=== PATIENT | male | born 1995 | race Two or more races ===

== ENCOUNTER 2021-06-27 03:09 | Inpatient (IN) | payer OTHER ==
[~2021-06-27] VITALS: Ht 177.8 cm; Wt 98.8 kg
[2021-06-27] VITALS (41 sets, daily range): BP systolic 100–142; BP diastolic 45–80
[~2021-06-27 03:09] MED LIST: AZIT250T9 PO; BENZ100C97 PO; CEFP200T15 PO
[2021-06-27] MEDS ORDERED: DexAMETHasone SOD PHOS 4 MG/1ML SDV INJ ONE (03:34)
[2021-06-27] MEDS ORDERED: DexAMETHasone SOD PHOS 10MG/1ML VIAL INJ IV ONE (03:45)
[2021-06-27] MEDS ORDERED: AZITHROMYCIN 500MG/ 250ML 250 ML IV ONE (04:15)
[2021-06-27 04:54] LABS: Lactic Acid w/Reflex 3.3 mmol/L (0.4-2.0)
[2021-06-27 04:58] LABS: Albumin 2.3 g/dL (3.4-5.0); Calcium 7.8 mg/dL (8.5-10.1); Magnesium 2.9 mg/dL (1.6-2.6); Potassium 4.8 mmol/L (3.5-5.1)
[2021-06-27 05:10] LABS: BUN/Creatinine Ratio 14.5; Bilirubin, Total 0.9 mg/dL (0.2-1.0)
[2021-06-27 05:14] LABS: Basophils # (auto) 0.1 10 ^3/uL (0-0.2); Basophils % (auto) 0.3 % (0.0-2.0); Eosinophils # (auto) 0 10 ^3/uL (0-0.8); Hematocrit 40.1 % (41.0-53.0); Lymphocytes # (auto) 1.3 10 ^3/uL (0.4-5.4); Lymphocytes % (auto) 7.1 % (10.0-50.0); Mean Corpuscular Hemoglobin 30.6 pg (28.0-32.0); Mean Corpuscular Volume 87.3 fL (80.0-100.0); Monocytes # (auto) 1.2 10 ^3/uL (0-1.3); Monocytes % (auto) 6.3 % (0.0-12.0); Neutrophils # (auto) 16.2 10 ^3/uL (1.6-8.6); Neutrophils % (auto) 86.3 % (37.0-80.0); Nucleated Red Blood Cells % 0.2 %; Red Blood Cells 4.59 10^6/uL (4.5-5.90); Red Cell Distribution Width 12.8 % (11.8-14.3); White Blood Cell 18.7 10^3/uL (4.4-10.8)
[2021-06-27] MEDS ORDERED: ENOXAPARIN SOD 100 MG/1 ML SYRINGE SC ONE (05:30)
[2021-06-27] MEDS ORDERED: ASPirin 325 MG TAB PO ONE (06:15)
[2021-06-27] MEDS ORDERED: LORazepam 2MG/ML-1ML VIAL ONE (07:31)
[2021-06-27] MEDS ORDERED: ETOMIDATE (2MG/ML) 20ML VIAL IV ONE ×4 (07:52→08:30)
[2021-06-27] MEDS ORDERED: SUCCINYLCHOLINE CHLORIDE 20 MG/ML 10ML VIAL IV ONE ×3 (07:52→08:29)
[2021-06-27] MEDS ORDERED: MIDAZOLAM DRIP 50 mg/50mL 50 ML IV ONE (07:52)
[2021-06-27 07:53] LABS: INR 1.31 (0.9-1.15); Partial Thromboplastin Time 33.6 sec (23.6-33.0)
[2021-06-27] MEDS ORDERED: fentaNYL Drip 2500mCg/250mlNS 250 ML IV ONE (07:55)
[2021-06-27] MEDS: fentaNYL Drip 2500mCg/250mlNS 250 ML IV SCH ×2 (08:20→09:40)
[2021-06-27] MEDS: MIDAZOLAM DRIP 50 mg/50mL 50 ML IV SCH ×3 (08:20→22:36)
[2021-06-27] MEDS ORDERED: PROPOFOL 100 ML IV ONE (08:27)
[2021-06-27] MEDS: PROPOFOL 100 ML IV SCH (08:31)
[2021-06-27] MEDS ORDERED: NOREPINEPHRINE 8 MG/250ML KIT 250 ML IV ONE (08:37)
[2021-06-27] MEDS ORDERED: ROCURONIUM BROMIDE 1,000 MG in D5W 5% 150 ML IV SCH (08:45)
[2021-06-27] MEDS ORDERED: ACETAMINOPHEN 650 MG RECT SUPP PR ONE ×2 (08:45→08:52)
[2021-06-27] MEDS ORDERED: ROCURONIUM 10MG/ML 10ML VIAL IV ONE (08:45)
[2021-06-27] MEDS ORDERED: MORPHINE SULFATE INJECTION 2 MG/ML SYRG IV PRN (09:30)
[2021-06-27] MEDS ORDERED: ALBUTEROL SULF HFA 90MCG INH 200DOSE IN PRN (09:30)
[2021-06-27] MEDS ORDERED: ONDANSETRON HCL 4 MG/2 ML VIAL IV PRN (09:30)
[2021-06-27] MEDS ORDERED: NITROGLYCERIN 0.4 MG SL TAB SL PRN (09:30)
[2021-06-27] MEDS ORDERED: HYDROmorphone HCL 2 MG/ML VL IV PRN (09:30)
[2021-06-27] MEDS ORDERED: REMDESIVIR PER PHARMACY 0 ML IV SCH (09:30)
[2021-06-27] MEDS ORDERED: HYDROcodone-ACET 5/325MG TAB PO PRN (09:30)
[2021-06-27] MEDS ORDERED: DOCUSATE SOD 100 MG CAP PO PRN (09:30)
[2021-06-27] MEDS: ROCURONIUM BROMIDE 1,000 MG in D5W 5% 150 ML IV SCH ×2 (09:40→23:28)
[2021-06-27] MEDS: NOREPINEPHRINE 8 MG/250ML KIT 250 ML IV SCH (09:55)
[2021-06-27] MEDS: AZITHROMYCIN 500MG/ 250ML 250 ML IV SCH (10:00)
[2021-06-27] MEDS ORDERED: ENOXAPARIN SOD 40 MG/0.4 ML SYRINGE SC SCH (10:00)
[2021-06-27] MEDS ORDERED: BUDESONIDE (INHALATION) 180 MCG IH IN SCH (10:00)
[2021-06-27] MEDS ORDERED: ACETAMINOPHEN 500 MG TAB PO ONE (10:15)
[2021-06-27] MEDS: DexAMETHasone SOD PHOS 10MG/1ML VIAL INJ IV SCH (10:40)
[2021-06-27] MEDS: CHOLECALCIFEROL (VITD3) 2,000 UNIT CAP/TAB PO SCH (10:40)
[2021-06-27] MEDS: ASCORBIC ACID 1,000 MG TAB PO SCH (10:40)
[2021-06-27] MEDS: ZINC SULFATE 220mg CAP or TAB PO SCH (10:40)
[2021-06-27] MEDS ORDERED: cefTRIAXone 1GM/50ML D5W 50 ML IV ONE (11:00)
[2021-06-27 11:22] LABS: Hematocrit 36.8 % (41.0-53.0); Hemoglobin 12.4 g/dL (13.5-17.5); Mean Corpuscular Hemoglobin 29.7 pg (28.0-32.0); Mean Corpuscular Hgb Conc. 33.8 g/dL (32.0-36.0); Mean Corpuscular Volume 87.9 fL (80.0-100.0); Red Blood Cells 4.18 10^6/uL (4.5-5.90); Red Cell Distribution Width 12.7 % (11.8-14.3); White Blood Cell 15.8 10^3/uL (4.4-10.8)
[2021-06-27 11:27] LABS: Basophils % (manual) 0 (0.0-2.0); Blast Cells 0; Eosinophils % (manual) 0 (0-7); Monocytes % (manual) 0 (0-12); Promyelocytes % 0; Reactive Lymphocytes 0
[2021-06-27] MEDS ORDERED: HEPARIN DRIP/D5W 100UNITS/ML 250 ML IV SCH (11:30)
[2021-06-27 11:33] LABS: Albumin 2.1 g/dL (3.4-5.0); Calcium 6.9 mg/dL (8.5-10.1); Potassium 5.2 mmol/L (3.5-5.1)
[2021-06-27 11:44] LABS: BUN/Creatinine Ratio 15.1; Bilirubin, Total 0.9 mg/dL (0.2-1.0); CRP High Sensitivity 16.2 mg/dL (< 0.3); Total Protein 6.4 g/dL (6.4-8.2)
[2021-06-27 11:49] LABS: INR 1.21 (0.9-1.15); Partial Thromboplastin Time 31.1 sec (23.6-33.0)
[2021-06-27 11:53] LABS: Band Neutrophils % (manual) 8; Lymphocytes % (manual) 5 (10.0-50.0); Metamyelocytes % 1; Myelocytes % 3
[2021-06-27] MEDS: HEPARIN DRIP/D5W 100UNITS/ML 250 ML IV SCH (12:56)
[2021-06-27] MEDS ORDERED: PIPERACILLIN-TAZO 4.5GM 100 ML IV SCH (14:00)
[2021-06-27] MEDS: SODIUM CHLOR 0.9% PF (SALINE LOCK) 10ML VIAL/SYR IV SCH ×2 (14:00→22:36)
[2021-06-27] MEDS: TOCILIZUMAB 400 MG in SODIUM CHL 0.9% 80 ML IV SCH (14:00)
[2021-06-27] MEDS ORDERED: IBUPROFEN 800 MG TAB PO ONE (16:15)
[2021-06-27] MEDS ORDERED: REMDESIVIR 200 MG in NS 210ml LOADING DOSE ADULT IV ONE (18:00)
[2021-06-27] MEDS ORDERED: FUROSEMIDE 20 MG/2 ML VIAL IV ONE (18:15)
[2021-06-27] MEDS: ERGOCALCIFEROL 50,000 UNIT(1.25MG) CAP PO SCH ×2 (20:51→22:36)
[2021-06-27] MEDS: BUDESONIDE (INHALATION) 0.5 MG/2 ML NEB NEB SCH (21:46)
[2021-06-27 23:10] LABS: Urine Bacteria FEW /hpf (None Seen); Urine Blood 2+ /uL (Negative); Urine Hyaline Cast FEW /lpf (0 - 2); Urine Mucus FEW (None Seen); Urine Specific Gravity 1.009 (1.001-1.035); Urine WBC 3 /hpf (0 - 3)
[2021-06-27] MEDS ORDERED: HEPARIN SODIUM (PORCINE) 5000 UNITS/ML 1ML VIAL ONE (23:15)
[2021-06-27] MEDS ORDERED: HEPARIN SODIUM (PORCINE) 5000 UNITS/ML 1ML VIAL IV ONE (23:30)
[2021-06-28] VITALS (103 sets, daily range): BP systolic 94–147; BP diastolic 44–78
[2021-06-28] MEDS: fentaNYL Drip 2500mCg/250mlNS 250 ML IV SCH ×2 (03:09→22:51)
[2021-06-28 04:03] LABS: Hematocrit 36.1 % (41.0-53.0); Mean Corpuscular Hemoglobin 29.3 pg (28.0-32.0); Mean Corpuscular Hgb Conc. 33.3 g/dL (32.0-36.0); Mean Corpuscular Volume 87.9 fL (80.0-100.0); Red Blood Cells 4.11 10^6/uL (4.5-5.90); Red Cell Distribution Width 12.6 % (11.8-14.3); White Blood Cell 12.6 10^3/uL (4.4-10.8)
[2021-06-28 04:18] LABS: Basophils % (manual) 0 (0.0-2.0); Blast Cells 0; Eosinophils % (manual) 0 (0-7); Metamyelocytes % 0; Myelocytes % 0; Promyelocytes % 0; Reactive Lymphocytes 0
[2021-06-28 04:27] LABS: INR 1.09 (0.9-1.15); Partial Thromboplastin Time 32.4 sec (23.6-33.0)
[2021-06-28 05:11] LABS: Calcium 7.2 mg/dL (8.5-10.1); Potassium 5.2 mmol/L (3.5-5.1)
[2021-06-28 05:17] LABS: BUN/Creatinine Ratio 16.9; Bilirubin, Total 0.4 mg/dL (0.2-1.0); Total Protein 6.2 g/dL (6.4-8.2)
[2021-06-28 06:28] LABS: Band Neutrophils % (manual) 3; Lymphocytes % (manual) 5 (10.0-50.0); Monocytes % (manual) 5 (0-12)
[2021-06-28] MEDS: BUDESONIDE (INHALATION) 0.5 MG/2 ML NEB NEB SCH ×2 (06:44→18:31)
[2021-06-28] MEDS: ALBUTEROL SULF 2.5 MG/0.5ML(0.5%) NEB SOLN NEB PRN ×2 (06:44→18:31)
[2021-06-28] MEDS: MIDAZOLAM DRIP 50 mg/50mL 50 ML IV SCH ×3 (06:47→14:00)
[2021-06-28] MEDS: PIPERACILLIN-TAZO 4.5GM 100 ML IV SCH ×2 (06:47→22:00)
[2021-06-28] MEDS: SODIUM CHLOR 0.9% PF (SALINE LOCK) 10ML VIAL/SYR IV SCH ×2 (06:47→22:00)
[2021-06-28] MEDS: HEPARIN DRIP/D5W 100UNITS/ML 250 ML IV SCH ×2 (06:50→12:30)
[2021-06-28] MEDS: PROPOFOL 100 ML IV SCH ×3 (09:14→14:30)
[2021-06-28] MEDS: DexAMETHasone SOD PHOS 10MG/1ML VIAL INJ IV SCH (09:15)
[2021-06-28] MEDS: AZITHROMYCIN 500MG/ 250ML 250 ML IV SCH (09:16)
[2021-06-28] MEDS: ASCORBIC ACID 1,000 MG TAB PO SCH (09:16)
[2021-06-28] MEDS: ZINC SULFATE 220mg CAP or TAB PO SCH (09:16)
[2021-06-28] MEDS: CHOLECALCIFEROL (VITD3) 2,000 UNIT CAP/TAB PO SCH (09:17)
[2021-06-28] MEDS: NOREPINEPHRINE 8 MG/250ML KIT 250 ML IV SCH (09:18)
[2021-06-28] MEDS ORDERED: FUROSEMIDE 20 MG/2 ML VIAL IV SCH (10:00)
[2021-06-28 11:14] LABS: INR 1.08 (0.9-1.15); Partial Thromboplastin Time 32.5 sec (23.6-33.0)
[2021-06-28] MEDS: TOCILIZUMAB 400 MG in SODIUM CHL 0.9% 80 ML IV SCH (11:18)
[2021-06-28] MEDS ORDERED: HEPARIN SODIUM (PORCINE) 5000 UNITS/ML 1ML VIAL IV ONE (12:30)
[2021-06-28] MEDS ORDERED: HEPARIN SODIUM (PORCINE) 5000 UNITS/ML 1ML VIAL ONE (13:08)
[2021-06-28] MEDS: ROCURONIUM BROMIDE 1,000 MG in D5W 5% 150 ML IV SCH (15:38)
[2021-06-28] MEDS: REMDESIVIR 100mg 100 MG in SODIUM CHL 0.9% 230 ML IV SCH (16:38)
[2021-06-28 19:19] LABS: INR 1.11 (0.9-1.15); Partial Thromboplastin Time 45.3 sec (23.6-33.0)
[2021-06-29] VITALS (101 sets, daily range): BP systolic 102–138; BP diastolic 46–72
[2021-06-29 00:42] LABS: INR 1.08 (0.9-1.15); Partial Thromboplastin Time 36.2 sec (23.6-33.0)
[2021-06-29] MEDS: fentaNYL Drip 2500mCg/250mlNS 250 ML IV SCH ×3 (00:53→21:39)
[2021-06-29 04:26] LABS: Hematocrit 31.6 % (41.0-53.0); Hemoglobin 10.7 g/dL (13.5-17.5); Mean Corpuscular Hemoglobin 29.8 pg (28.0-32.0); Mean Corpuscular Hgb Conc. 33.7 g/dL (32.0-36.0); Mean Corpuscular Volume 88.5 fL (80.0-100.0); Red Blood Cells 3.58 10^6/uL (4.5-5.90); Red Cell Distribution Width 12.7 % (11.8-14.3); White Blood Cell 16.8 10^3/uL (4.4-10.8)
[2021-06-29 04:42] LABS: Basophils % (manual) 0 (0.0-2.0); Blast Cells 0; Eosinophils % (manual) 0 (0-7); Metamyelocytes % 0; Monocytes % (manual) 0 (0-12); Myelocytes % 0; Promyelocytes % 0; Reactive Lymphocytes 0
[2021-06-29 04:50] LABS: BUN/Creatinine Ratio 24.7; Bilirubin, Total 0.4 mg/dL (0.2-1.0); Total Protein 5.8 g/dL (6.4-8.2)
[2021-06-29] MEDS: HEPARIN DRIP/D5W 100UNITS/ML 250 ML IV SCH ×2 (06:30→15:08)
[2021-06-29] MEDS: PIPERACILLIN-TAZO 4.5GM 100 ML IV SCH ×3 (06:31→23:46)
[2021-06-29] MEDS: SODIUM CHLOR 0.9% PF (SALINE LOCK) 10ML VIAL/SYR IV SCH ×3 (06:31→22:03)
[2021-06-29 06:54] LABS: INR 1.07 (0.9-1.15); Partial Thromboplastin Time 37.3 sec (23.6-33.0)
[2021-06-29] MEDS: ROCURONIUM BROMIDE 1,000 MG in D5W 5% 150 ML IV SCH ×2 (06:57→22:16)
[2021-06-29 07:01] LABS: Band Neutrophils % (manual) 5; Lymphocytes % (manual) 5 (10.0-50.0)
[2021-06-29] MEDS: NOREPINEPHRINE 8 MG/250ML KIT 250 ML IV SCH (08:23)
[2021-06-29] MEDS: ASCORBIC ACID 1,000 MG TAB PO SCH (09:49)
[2021-06-29] MEDS: AZITHROMYCIN 500MG/ 250ML 250 ML IV SCH (09:49)
[2021-06-29] MEDS: ZINC SULFATE 220mg CAP or TAB PO SCH (09:49)
[2021-06-29] MEDS: DexAMETHasone SOD PHOS 10MG/1ML VIAL INJ IV SCH (09:49)
[2021-06-29] MEDS: CHOLECALCIFEROL (VITD3) 2,000 UNIT CAP/TAB PO SCH (09:49)
[2021-06-29] MEDS: BUDESONIDE (INHALATION) 0.5 MG/2 ML NEB NEB SCH ×3 (09:57→22:15)
[2021-06-29] MEDS: MIDAZOLAM DRIP 50 mg/50mL 50 ML IV SCH ×4 (10:12→22:00)
[2021-06-29] MEDS: PROPOFOL 100 ML IV SCH ×5 (10:13→23:00)
[2021-06-29 11:28] LABS: Hematocrit 30.2 % (41.0-53.0); Hemoglobin 10.2 g/dL (13.5-17.5)
[2021-06-29] MEDS ORDERED: Vital AF 1.2 Cal 1 liter bottle GT SCH (13:30)
[2021-06-29 14:05] LABS: INR 1.09 (0.9-1.15); Partial Thromboplastin Time 43.3 sec (23.6-33.0)
[2021-06-29] MEDS: REMDESIVIR 100mg 100 MG in SODIUM CHL 0.9% 230 ML IV SCH ×2 (15:00→18:18)
[2021-06-29 16:37] LABS: Hematocrit 30.4 % (41.0-53.0); Hemoglobin 10.2 g/dL (13.5-17.5)
[2021-06-29 21:26] LABS: Hematocrit 30.7 % (41.0-53.0); Hemoglobin 10.3 g/dL (13.5-17.5)
[2021-06-29 21:42] LABS: INR 1.11 (0.9-1.15); Partial Thromboplastin Time 54.6 sec (23.6-33.0)
[2021-06-29] MEDS: ALBUTEROL SULF 2.5 MG/0.5ML(0.5%) NEB SOLN NEB PRN ×2 (22:14→22:15)
[2021-06-29] MEDS: PANTOPRAZOLE 40 MG/10 ML VIAL INJ IV SCH (22:37)
[2021-06-30] VITALS (98 sets, daily range): BP systolic 103–146; BP diastolic 58–94
[2021-06-30] MEDS: MIDAZOLAM DRIP 50 mg/50mL 50 ML IV SCH ×6 (01:08→21:35)
[2021-06-30] MEDS: HEPARIN DRIP/D5W 100UNITS/ML 250 ML IV SCH ×2 (02:24→11:35)
[2021-06-30] MEDS: PROPOFOL 100 ML IV SCH ×5 (02:30→19:21)
[2021-06-30] MEDS: SODIUM CHLOR 0.9% PF (SALINE LOCK) 10ML VIAL/SYR IV SCH ×3 (05:27→22:00)
[2021-06-30 05:43] LABS: Hematocrit 30.1 % (41.0-53.0); Hemoglobin 9.9 g/dL (13.5-17.5); Mean Corpuscular Hemoglobin 29.5 pg (28.0-32.0); Mean Corpuscular Hgb Conc. 32.8 g/dL (32.0-36.0); Mean Corpuscular Volume 89.7 fL (80.0-100.0); Red Blood Cells 3.36 10^6/uL (4.5-5.90)
[2021-06-30 05:45] LABS: Basophils % (manual) 0 (0.0-2.0); Blast Cells 0; Eosinophils % (manual) 0 (0-7); Myelocytes % 0; Promyelocytes % 0
[2021-06-30 05:53] LABS: INR 1.13 (0.9-1.15)
[2021-06-30 06:05] LABS: Partial Thromboplastin Time 73.4 sec (23.6-33.0)
[2021-06-30 06:15] LABS: BUN/Creatinine Ratio 29.7; Potassium 5.4 mmol/L (3.5-5.1)
[2021-06-30 06:16] LABS: Albumin 2.1 g/dL (3.4-5.0); Bilirubin, Total 0.5 mg/dL (0.2-1.0); Calcium 7.3 mg/dL (8.5-10.1); Total Protein 5.6 g/dL (6.4-8.2)
[2021-06-30] MEDS: BUDESONIDE (INHALATION) 0.5 MG/2 ML NEB NEB SCH ×2 (06:29→22:27)
[2021-06-30] MEDS: ALBUTEROL SULF 2.5 MG/0.5ML(0.5%) NEB SOLN NEB PRN ×2 (06:29→22:27)
[2021-06-30 06:53] LABS: Band Neutrophils % (manual) 3; Lymphocytes % (manual) 11 (10.0-50.0); Metamyelocytes % 3; Monocytes % (manual) 4 (0-12); Reactive Lymphocytes 1
[2021-06-30] MEDS: PIPERACILLIN-TAZO 4.5GM 100 ML IV SCH ×2 (06:57→18:48)
[2021-06-30] MEDS: fentaNYL Drip 2500mCg/250mlNS 250 ML IV SCH ×2 (06:58→19:21)
[2021-06-30] MEDS: NOREPINEPHRINE 8 MG/250ML KIT 250 ML IV SCH (09:12)
[2021-06-30] MEDS: DexAMETHasone SOD PHOS 10MG/1ML VIAL INJ IV SCH (09:13)
[2021-06-30] MEDS: PANTOPRAZOLE 40 MG/10 ML VIAL INJ IV SCH ×2 (09:13→22:42)
[2021-06-30] MEDS: AZITHROMYCIN 500MG/ 250ML 250 ML IV SCH (09:14)
[2021-06-30] MEDS: ZINC SULFATE 220mg CAP or TAB PO SCH (09:14)
[2021-06-30] MEDS: CHOLECALCIFEROL (VITD3) 2,000 UNIT CAP/TAB PO SCH (09:14)
[2021-06-30] MEDS: ASCORBIC ACID 1,000 MG TAB PO SCH (09:14)
[2021-06-30] MEDS ORDERED: FUROSEMIDE 20 MG/2 ML VIAL IV ONE (10:45)
[2021-06-30 11:17] LABS: INR 1.13 (0.9-1.15)
[2021-06-30] MEDS: ROCURONIUM BROMIDE 1,000 MG in D5W 5% 150 ML IV SCH (11:32)
[2021-06-30 11:34] LABS: Partial Thromboplastin Time 84.3 sec (23.6-33.0)
[2021-06-30] MEDS: REMDESIVIR 100mg 100 MG in SODIUM CHL 0.9% 230 ML IV SCH (14:53)
[2021-06-30] MEDS ORDERED: IOHEXOL 350 MG/ML 100ML IJ ONE ×2 (16:13→16:24)
[2021-07-01] VITALS (100 sets, daily range): BP systolic 102–144; BP diastolic 49–90
[2021-07-01] MEDS: PIPERACILLIN-TAZO 4.5GM 100 ML IV SCH ×4 (00:25→22:30)
[2021-07-01] MEDS: MIDAZOLAM DRIP 50 mg/50mL 50 ML IV SCH ×7 (01:34→22:50)
[2021-07-01] MEDS: ROCURONIUM BROMIDE 1,000 MG in D5W 5% 150 ML IV SCH ×2 (04:54→16:12)
[2021-07-01] MEDS: fentaNYL Drip 2500mCg/250mlNS 250 ML IV SCH ×2 (05:00→18:08)
[2021-07-01 06:04] LABS: Hematocrit 32.9 % (41.0-53.0); Hemoglobin 10.9 g/dL (13.5-17.5); Mean Corpuscular Hemoglobin 29.5 pg (28.0-32.0); Mean Corpuscular Hgb Conc. 33.3 g/dL (32.0-36.0); Mean Corpuscular Volume 88.7 fL (80.0-100.0); White Blood Cell 17.2 10^3/uL (4.4-10.8)
[2021-07-01] MEDS: SODIUM CHLOR 0.9% PF (SALINE LOCK) 10ML VIAL/SYR IV SCH ×3 (06:05→22:30)
[2021-07-01 06:08] LABS: Albumin 2.6 g/dL (3.4-5.0); Calcium 8.3 mg/dL (8.5-10.1); Magnesium 3.4 mg/dL (1.6-2.6); Potassium 4.9 mmol/L (3.5-5.1)
[2021-07-01 06:17] LABS: BUN/Creatinine Ratio 32.7; Bilirubin, Total 0.9 mg/dL (0.2-1.0); CRP High Sensitivity 1.59 mg/dL (< 0.3)
[2021-07-01 06:26] LABS: Basophils % (manual) 0 (0.0-2.0); Blast Cells 0; Eosinophils % (manual) 0 (0-7); Promyelocytes % 0; Reactive Lymphocytes 0
[2021-07-01 06:58] LABS: Band Neutrophils % (manual) 6; Lymphocytes % (manual) 5 (10.0-50.0); Metamyelocytes % 1; Monocytes % (manual) 5 (0-12); Myelocytes % 2
[2021-07-01] MEDS: NOREPINEPHRINE 8 MG/250ML KIT 250 ML IV SCH (07:51)
[2021-07-01] MEDS ORDERED: ENOXAPARIN SOD 40 MG/0.4 ML SYRINGE SC SCH (10:00)
[2021-07-01] MEDS: DexAMETHasone SOD PHOS 10MG/1ML VIAL INJ IV SCH (10:35)
[2021-07-01] MEDS: PANTOPRAZOLE 40 MG/10 ML VIAL INJ IV SCH ×2 (10:35→22:29)
[2021-07-01] MEDS: AZITHROMYCIN 500MG/ 250ML 250 ML IV SCH (10:35)
[2021-07-01] MEDS: ASCORBIC ACID 1,000 MG TAB PO SCH (10:40)
[2021-07-01] MEDS: CHOLECALCIFEROL (VITD3) 2,000 UNIT CAP/TAB PO SCH (10:40)
[2021-07-01] MEDS: ALBUTEROL SULF 2.5 MG/0.5ML(0.5%) NEB SOLN NEB PRN ×2 (10:40→18:54)
[2021-07-01] MEDS: BUDESONIDE (INHALATION) 0.5 MG/2 ML NEB NEB SCH ×2 (10:40→18:54)
[2021-07-01] MEDS: ZINC SULFATE 220mg CAP or TAB PO SCH (10:40)
[2021-07-01] MEDS: PROPOFOL 100 ML IV SCH ×5 (10:41→22:50)
[2021-07-01] MEDS: REMDESIVIR 100mg 100 MG in SODIUM CHL 0.9% 230 ML IV SCH (15:45)
[2021-07-01] MEDS: ENOXAPARIN SOD 40 MG/0.4 ML SYRINGE SC SCH (22:32)
[2021-07-02] VITALS (96 sets, daily range): BP systolic 97–155; BP diastolic 46–101
[2021-07-02] MEDS: PROPOFOL 100 ML IV SCH ×6 (00:50→16:23)
[2021-07-02] MEDS: fentaNYL Drip 2500mCg/250mlNS 250 ML IV SCH ×3 (00:50→22:32)
[2021-07-02] MEDS: MIDAZOLAM DRIP 50 mg/50mL 50 ML IV SCH ×6 (00:50→22:32)
[2021-07-02 04:04] LABS: Hematocrit 32.8 % (41.0-53.0); Hemoglobin 10.8 g/dL (13.5-17.5); Mean Corpuscular Hemoglobin 29.4 pg (28.0-32.0); Mean Corpuscular Hgb Conc. 32.9 g/dL (32.0-36.0); Mean Corpuscular Volume 89.6 fL (80.0-100.0); Red Blood Cells 3.66 10^6/uL (4.5-5.90); Red Cell Distribution Width 12.8 % (11.8-14.3); White Blood Cell 14.1 10^3/uL (4.4-10.8)
[2021-07-02 04:23] LABS: Basophils % (manual) 0 (0.0-2.0); Blast Cells 0; Eosinophils % (manual) 0 (0-7); Promyelocytes % 0; Reactive Lymphocytes 0
[2021-07-02 04:29] LABS: Albumin 2.6 g/dL (3.4-5.0); Anion Gap 5 (5-15); Carbon Dioxide 27 mmol/L (21-32); Chloride 106 mmol/L (98-107); Potassium 5.1 mmol/L (3.5-5.1); Sodium 138 mmol/L (136-145)
[2021-07-02 04:35] LABS: Alanine Aminotransferase 180 U/L (16-61); Alkaline Phosphatase 63 U/L (45-117); Aspartate Aminotransferase 83 U/L (15-37); BUN/Creatinine Ratio 31.3; Bilirubin, Total 0.9 mg/dL (0.2-1.0); Blood Urea Nitrogen 31 mg/dL (7-18); Calcium 8.5 mg/dL (8.5-10.1); Cholesterol 209 mg/dL (< 200); GFR African American 119 mL/min; GFR Non-African American 99 mL/min; Glucose 127 mg/dL (74-106); HDL Cholesterol 27 mg/dL (40-59); Total Protein 5.9 g/dL (6.4-8.2); Triglycerides 461 mg/dL (< 150)
[2021-07-02 05:17] LABS: INR 1.13 (0.9-1.15)
[2021-07-02] MEDS: PIPERACILLIN-TAZO 4.5GM 100 ML IV SCH ×3 (05:58→22:30)
[2021-07-02] MEDS: SODIUM CHLOR 0.9% PF (SALINE LOCK) 10ML VIAL/SYR IV SCH ×3 (05:58→22:30)
[2021-07-02] MEDS: ROCURONIUM BROMIDE 1,000 MG in D5W 5% 150 ML IV SCH (07:26)
[2021-07-02] MEDS: NOREPINEPHRINE 8 MG/250ML KIT 250 ML IV SCH (07:26)
[2021-07-02 07:53] LABS: Band Neutrophils % (manual) 5; Lymphocytes % (manual) 5 (10.0-50.0); Metamyelocytes % 3; Monocytes % (manual) 4 (0-12); Myelocytes % 3
[2021-07-02] MEDS: BUDESONIDE (INHALATION) 0.5 MG/2 ML NEB NEB SCH ×2 (10:00→22:04)
[2021-07-02] MEDS: DexAMETHasone SOD PHOS 10MG/1ML VIAL INJ IV SCH (10:47)
[2021-07-02] MEDS: PANTOPRAZOLE 40 MG/10 ML VIAL INJ IV SCH ×2 (10:52→22:30)
[2021-07-02] MEDS: CHOLECALCIFEROL (VITD3) 2,000 UNIT CAP/TAB PO SCH (10:53)
[2021-07-02] MEDS: ASCORBIC ACID 1,000 MG TAB PO SCH (10:53)
[2021-07-02] MEDS: ZINC SULFATE 220mg CAP or TAB PO SCH (10:53)
[2021-07-02] MEDS: ENOXAPARIN SOD 40 MG/0.4 ML SYRINGE SC SCH ×2 (10:54→22:30)
[2021-07-02] MEDS: ALBUTEROL SULF 2.5 MG/0.5ML(0.5%) NEB SOLN NEB PRN (22:04)
[2021-07-03] VITALS (90 sets, daily range): BP systolic 107–153; BP diastolic 64–102
[2021-07-03] MEDS: ROCURONIUM BROMIDE 1,000 MG in D5W 5% 150 ML IV SCH ×2 (02:51→16:37)
[2021-07-03 03:41] LABS: Hematocrit 35.2 % (41.0-53.0); Hemoglobin 11.7 g/dL (13.5-17.5); Mean Corpuscular Hemoglobin 29.5 pg (28.0-32.0); Mean Corpuscular Hgb Conc. 33.1 g/dL (32.0-36.0); Mean Corpuscular Volume 89.1 fL (80.0-100.0); Red Blood Cells 3.95 10^6/uL (4.5-5.90); Red Cell Distribution Width 12.5 % (11.8-14.3); White Blood Cell 14.9 10^3/uL (4.4-10.8)
[2021-07-03 03:44] LABS: Basophils % (manual) 0 (0.0-2.0); Blast Cells 0; Promyelocytes % 0; Reactive Lymphocytes 0
[2021-07-03 03:59] LABS: Albumin 2.7 g/dL (3.4-5.0); Calcium 8.6 mg/dL (8.5-10.1)
[2021-07-03 04:02] LABS: Bilirubin, Total 0.9 mg/dL (0.2-1.0)
[2021-07-03 05:03] LABS: Band Neutrophils % (manual) 6; Eosinophils % (manual) 1 (0-7); Lymphocytes % (manual) 14 (10.0-50.0); Metamyelocytes % 2; Monocytes % (manual) 6 (0-12); Myelocytes % 5
[2021-07-03] MEDS: SODIUM CHLOR 0.9% PF (SALINE LOCK) 10ML VIAL/SYR IV SCH ×3 (05:45→21:44)
[2021-07-03] MEDS: PIPERACILLIN-TAZO 4.5GM 100 ML IV SCH ×3 (05:45→21:45)
[2021-07-03] MEDS: NOREPINEPHRINE 8 MG/250ML KIT 250 ML IV SCH (08:20)
[2021-07-03] MEDS: DexAMETHasone SOD PHOS 10MG/1ML VIAL INJ IV SCH (09:56)
[2021-07-03] MEDS: ENOXAPARIN SOD 40 MG/0.4 ML SYRINGE SC SCH ×2 (09:57→21:45)
[2021-07-03] MEDS: CHOLECALCIFEROL (VITD3) 2,000 UNIT CAP/TAB PO SCH (09:57)
[2021-07-03] MEDS: PANTOPRAZOLE 40 MG/10 ML VIAL INJ IV SCH ×2 (09:57→21:44)
[2021-07-03] MEDS: ZINC SULFATE 220mg CAP or TAB PO SCH (09:57)
[2021-07-03] MEDS: ASCORBIC ACID 1,000 MG TAB PO SCH (09:57)
[2021-07-03] MEDS: PROPOFOL 100 ML IV SCH (11:30)
[2021-07-03] MEDS: MIDAZOLAM DRIP 50 mg/50mL 50 ML IV SCH (11:30)
[2021-07-03] MEDS: BUDESONIDE (INHALATION) 0.5 MG/2 ML NEB NEB SCH ×2 (15:13→21:57)
[2021-07-03] MEDS: ALBUTEROL SULF 2.5 MG/0.5ML(0.5%) NEB SOLN NEB PRN ×3 (15:13→21:57)
[2021-07-03] MEDS: fentaNYL Drip 2500mCg/250mlNS 250 ML IV SCH (18:46)
[2021-07-04] VITALS (86 sets, daily range): BP systolic 120–161; BP diastolic 71–105
[2021-07-04 05:09] LABS: Hemoglobin 11.9 g/dL (13.5-17.5); Mean Corpuscular Hemoglobin 30.2 pg (28.0-32.0); Mean Corpuscular Hgb Conc. 33.9 g/dL (32.0-36.0); Mean Corpuscular Volume 89.1 fL (80.0-100.0); Red Blood Cells 3.93 10^6/uL (4.5-5.90); Red Cell Distribution Width 12.9 % (11.8-14.3)
[2021-07-04 05:20] LABS: Basophils % (manual) 0 (0.0-2.0); Blast Cells 0; Eosinophils % (manual) 0 (0-7); Promyelocytes % 0; Reactive Lymphocytes 0
[2021-07-04 05:32] LABS: Albumin 2.7 g/dL (3.4-5.0); BUN/Creatinine Ratio 29.7; Calcium 8.3 mg/dL (8.5-10.1); Potassium 4.6 mmol/L (3.5-5.1)
[2021-07-04 05:35] LABS: Bilirubin, Total 0.9 mg/dL (0.2-1.0)
[2021-07-04] MEDS: PROPOFOL 100 ML IV SCH (06:00)
[2021-07-04] MEDS: SODIUM CHLOR 0.9% PF (SALINE LOCK) 10ML VIAL/SYR IV SCH ×3 (06:22→22:03)
[2021-07-04] MEDS: PIPERACILLIN-TAZO 4.5GM 100 ML IV SCH ×3 (06:22→22:03)
[2021-07-04] MEDS: fentaNYL Drip 2500mCg/250mlNS 250 ML IV SCH (06:30)
[2021-07-04 08:05] LABS: Band Neutrophils % (manual) 2; Lymphocytes % (manual) 10 (10.0-50.0); Metamyelocytes % 2; Monocytes % (manual) 6 (0-12); Myelocytes % 1
[2021-07-04] MEDS: ROCURONIUM BROMIDE 1,000 MG in D5W 5% 150 ML IV SCH (09:29)
[2021-07-04] MEDS: NOREPINEPHRINE 8 MG/250ML KIT 250 ML IV SCH (09:35)
[2021-07-04] MEDS: PANTOPRAZOLE 40 MG/10 ML VIAL INJ IV SCH ×2 (09:36→22:03)
[2021-07-04] MEDS: DexAMETHasone SOD PHOS 10MG/1ML VIAL INJ IV SCH (09:36)
[2021-07-04] MEDS: ZINC SULFATE 220mg CAP or TAB PO SCH (09:37)
[2021-07-04] MEDS: CHOLECALCIFEROL (VITD3) 2,000 UNIT CAP/TAB PO SCH (09:37)
[2021-07-04] MEDS: ASCORBIC ACID 1,000 MG TAB PO SCH (09:37)
[2021-07-04] MEDS: ENOXAPARIN SOD 40 MG/0.4 ML SYRINGE SC SCH ×2 (09:37→22:03)
[2021-07-04] MEDS: BUDESONIDE (INHALATION) 0.5 MG/2 ML NEB NEB SCH (22:00)
[2021-07-04] MEDS: ERGOCALCIFEROL 50,000 UNIT(1.25MG) CAP PO SCH (22:03)
[2021-07-05] VITALS (26 sets, daily range): BP systolic 117–155; BP diastolic 74–115
[2021-07-05] MEDS: ROCURONIUM BROMIDE 1,000 MG in D5W 5% 150 ML IV SCH ×2 (00:48→15:44)
[2021-07-05] MEDS: BUDESONIDE (INHALATION) 0.5 MG/2 ML NEB NEB SCH ×4 (06:02→23:13)
[2021-07-05] MEDS: SODIUM CHLOR 0.9% PF (SALINE LOCK) 10ML VIAL/SYR IV SCH ×3 (06:17→22:23)
[2021-07-05] MEDS: PIPERACILLIN-TAZO 4.5GM 100 ML IV SCH ×3 (06:17→22:24)
[2021-07-05] MEDS: ALBUTEROL SULF 2.5 MG/0.5ML(0.5%) NEB SOLN NEB PRN (06:18)
[2021-07-05] MEDS: MIDAZOLAM DRIP 50 mg/50mL 50 ML IV SCH (08:00)
[2021-07-05] MEDS: NOREPINEPHRINE 8 MG/250ML KIT 250 ML IV SCH (09:00)
[2021-07-05 09:52] LABS: Basophils # (auto) 0 10 ^3/uL (0-0.2); Basophils % (auto) 0.1 % (0.0-2.0); Eosinophils # (auto) 0.1 10 ^3/uL (0-0.8); Hematocrit 36.2 % (41.0-53.0); Lymphocytes # (auto) 1.3 10 ^3/uL (0.4-5.4); Lymphocytes % (auto) 16.1 % (10.0-50.0); Mean Corpuscular Hemoglobin 29.6 pg (28.0-32.0); Mean Corpuscular Hgb Conc. 33.1 g/dL (32.0-36.0); Mean Corpuscular Volume 89.5 fL (80.0-100.0); Monocytes # (auto) 0.9 10 ^3/uL (0-1.3); Monocytes % (auto) 10.6 % (0.0-12.0); Neutrophils # (auto) 5.9 10 ^3/uL (1.6-8.6); Neutrophils % (auto) 72.2 % (37.0-80.0); Red Blood Cells 4.05 10^6/uL (4.5-5.90); Red Cell Distribution Width 12.9 % (11.8-14.3); White Blood Cell 8.2 10^3/uL (4.4-10.8)
[2021-07-05] MEDS: ASCORBIC ACID 1,000 MG TAB PO SCH (10:00)
[2021-07-05] MEDS: CHOLECALCIFEROL (VITD3) 2,000 UNIT CAP/TAB PO SCH (10:00)
[2021-07-05] MEDS: ZINC SULFATE 220mg CAP or TAB PO SCH (10:00)
[2021-07-05] MEDS: PANTOPRAZOLE 40 MG/10 ML VIAL INJ IV SCH ×2 (10:46→22:23)
[2021-07-05] MEDS: DexAMETHasone SOD PHOS 10MG/1ML VIAL INJ IV SCH (10:46)
[2021-07-05] MEDS: ENOXAPARIN SOD 40 MG/0.4 ML SYRINGE SC SCH ×2 (10:46→22:24)
[2021-07-05 12:07] LABS: BUN/Creatinine Ratio 29.7; Calcium 8.9 mg/dL (8.5-10.1); Potassium 4.2 mmol/L (3.5-5.1)
[2021-07-05] MEDS: fentaNYL Drip 2500mCg/250mlNS 250 ML IV SCH (15:44)
[2021-07-06] VITALS (7 sets, daily range): BP systolic 127–146; BP diastolic 77–104
[2021-07-06] MEDS ORDERED: HYDROcodone-ACET 5/325MG TAB PO PRN (04:15)
[2021-07-06] MEDS: PIPERACILLIN-TAZO 4.5GM 100 ML IV SCH ×3 (06:14→21:02)
[2021-07-06] MEDS: SODIUM CHLOR 0.9% PF (SALINE LOCK) 10ML VIAL/SYR IV SCH ×3 (06:14→20:57)
[2021-07-06] MEDS: ALBUTEROL SULF 2.5 MG/0.5ML(0.5%) NEB SOLN NEB PRN ×2 (06:34→22:10)
[2021-07-06] MEDS: BUDESONIDE (INHALATION) 0.5 MG/2 ML NEB NEB SCH ×2 (06:34→22:10)
[2021-07-06] MEDS: ROCURONIUM BROMIDE 1,000 MG in D5W 5% 150 ML IV SCH (07:26)
[2021-07-06] MEDS: MIDAZOLAM DRIP 50 mg/50mL 50 ML IV SCH (08:00)
[2021-07-06] MEDS: PROPOFOL 100 ML IV SCH (08:31)
[2021-07-06] MEDS: DexAMETHasone SOD PHOS 10MG/1ML VIAL INJ IV SCH (09:20)
[2021-07-06] MEDS: ZINC SULFATE 220mg CAP or TAB PO SCH (09:21)
[2021-07-06] MEDS: CHOLECALCIFEROL (VITD3) 2,000 UNIT CAP/TAB PO SCH (09:21)
[2021-07-06] MEDS: PANTOPRAZOLE 40 MG/10 ML VIAL INJ IV SCH ×2 (09:21→21:02)
[2021-07-06] MEDS: ENOXAPARIN SOD 40 MG/0.4 ML SYRINGE SC SCH ×2 (09:21→21:02)
[2021-07-06] MEDS: ASCORBIC ACID 1,000 MG TAB PO SCH (09:21)
[2021-07-07] MEDS: SODIUM CHLOR 0.9% PF (SALINE LOCK) 10ML VIAL/SYR IV SCH ×2 (05:20→14:00)
[2021-07-07 05:25] VITALS: BP 150/96
[2021-07-07] MEDS: PIPERACILLIN-TAZO 4.5GM 100 ML IV SCH ×2 (05:26→14:00)
[2021-07-07 06:47] LABS: Potassium 4.1 mmol/L (3.5-5.1)
[2021-07-07 06:55] LABS: Albumin 3.3 g/dL (3.4-5.0); BUN/Creatinine Ratio 23.7; Bilirubin, Total 1.5 mg/dL (0.2-1.0); Calcium 9.1 mg/dL (8.5-10.1); Total Protein 6.2 g/dL (6.4-8.2)
[2021-07-07] MEDS: BUDESONIDE (INHALATION) 0.5 MG/2 ML NEB NEB SCH (08:00)
[2021-07-07] MEDS: ALBUTEROL SULF 2.5 MG/0.5ML(0.5%) NEB SOLN NEB PRN (08:01)
[2021-07-07] MEDS: PANTOPRAZOLE 40 MG/10 ML VIAL INJ IV SCH (08:42)
[2021-07-07] MEDS: DexAMETHasone SOD PHOS 10MG/1ML VIAL INJ IV SCH (08:42)
[2021-07-07] MEDS: ZINC SULFATE 220mg CAP or TAB PO SCH (08:43)
[2021-07-07] MEDS: CHOLECALCIFEROL (VITD3) 2,000 UNIT CAP/TAB PO SCH (08:44)
[2021-07-07] MEDS: ASCORBIC ACID 1,000 MG TAB PO SCH (08:44)
[2021-07-07] MEDS: ENOXAPARIN SOD 40 MG/0.4 ML SYRINGE SC SCH (08:45)
[2021-07-07 09:00] VITALS: BP 137/77
[2021-07-07] MEDS ORDERED: CHOL1CAP47 PO (10:52)
[2021-07-07] MEDS ORDERED: DEXA4TAB90 PO (10:52)
[2021-07-07] MEDS ORDERED: ASCO10003 PO (10:52)
[2021-07-07 12:49] VITALS: BP 141/92
[2021-07-07 12:51] VITALS: BP 117/86
== END 2021-07-07 16:15 | disposition home or self-care (01) | DRG 870 ==
LOC: EDBD 03:09 → ER 03:09 → TELE 09:30 → ICU WEST 14:11 → TELE-EAST 07-05 21:53
PROVIDERS: ADMIT Internal Medicine; ATTEND Internal Medicine Pulmonary Disease
PROC: 5A1955Z Respiratory Ventilation, Greater than 96 Consecutive Hours (ICD-10-PCS; principal; 2021-06-27)
PROC: 0BH17EZ Insertion of Endotracheal Airway into Trachea, Via Natural or Artificial Opening (ICD-10-PCS; 2021-06-27)
PROC: 5A09357 Assistance with Respiratory Ventilation, Less than 24 Consecutive Hours, Continuous Positive Airway Pressure (ICD-10-PCS; 2021-06-27)
PROC: XW033E5 Introduction of Remdesivir Anti-infective into Peripheral Vein, Percutaneous Approach, New Technology Group 5 (ICD-10-PCS; 2021-06-27)
PROC: 06HY33Z Insertion of Infusion Device into Lower Vein, Percutaneous Approach (ICD-10-PCS; 2021-06-27)
DX: A41.89 Other specified sepsis (principal); U07.1 COVID-19; J12.82 Pneumonia due to coronavirus disease 2019; J96.01 Acute respiratory failure with hypoxia; I21.4 Non-ST elevation (NSTEMI) myocardial infarction; N17.0 Acute kidney failure with tubular necrosis; D89.834 Cytokine release syndrome, grade 4; D68.59 Other primary thrombophilia; E55.9 Vitamin D deficiency, unspecified; E66.01 Morbid (severe) obesity due to excess calories; E78.5 Hyperlipidemia, unspecified; D64.9 Anemia, unspecified; R73.03 Prediabetes; E87.5 Hyperkalemia; Z68.31 Body mass index [BMI] 31.0-31.9, adult
CPT/HCPCS: 36415; 36600; 71045; 71275; 80048; 80053; 80061; 81001; 82306; 82550; 82728; 82805; 82962; 83036; 83605; 83615; 83735; 83880; 84443; 84484; 85007; 85014; 85018; 85025; 85027; 85379; 85610; 85730; 86141; 86710; 87040; 87070; 87077; 87081; 87086; 87186; 87205; 87426; 92610; 93005; 93306; 93970; 94002; 94003; 94640; 94660; 96365; 96375; 97116; 97163; 97530; A4618; C9113; G0378; J0330; J1100; J2250; J2405; J2543; J2704; J7060